=== PATIENT | male | born 1955 | race Caucasian/White ===

== ENCOUNTER 2019-07-20 09:20 | Outpatient (CLI) | payer MEDICARE, SELFPAY ==
--- NOTE | 2019-07-20 09:25 | ECG_ITS ---
Measurements Intervals [place] Rate: 98 P: 42 MO: 178 QRS: 25 QRSD: 74 T: 28 QT: 318 QTc: 407 Interpretive Statements SINUS RHYTHM LOW QRS VOLTAGE IN PRECORDIAL LEADS BASELINE ARTIFACT- I, II, AVR, V5-V6 BORDERLINE ECG Electronically Signed On 07-20-2019 10:13:21 LENS MATCHER by Moreno Salazar D.O.
[2019-07-20 10:13] LABS: Blood Urea Nitrogen 24 mg/dL (9-20); Calcium 9.8 mg/dL (8.4-10.2); Carbon Dioxide 30 mmol/L (22-30); Chloride 98 mmol/L (98-107); Estimated Glomerular Filt Rate 34; Glucose 114 mg/dL (75-110); Potassium 3.6 mmol/L (3.4-5.0); Sodium 137 mmol/L (137-145)
== END 2019-07-20 09:21 | disposition home or self-care (01) ==
PROVIDERS: Anesthesiology; PCP Internal Medicine; Visit Provider Urology
DX: Z01.818 Encounter for other preprocedural examination (principal); C61 Malignant neoplasm of prostate; I10 Essential (primary) hypertension
CPT/HCPCS: 36415; 80048; 87086; 93005

== ENCOUNTER 2019-08-02 00:37 | Day surgery (SDC) | payer MEDICARE, SELFPAY ==
[2019-07-18 15:50] VITALS: BMI 31.4
--- NOTE | 2019-08-02 09:19 | WPDHPUPDATE1 ---
History and Physical Update Update Date/Time: 08/02/19 09:19 History and Physical has been reviewed, including an updated exam of the patient. There are NO changes in the patient's condition. Risks, benefits, and alternatives have been discussed and questions answered. Patient agrees to proceed with procedure.
[2019-08-02] MEDS: LACTATED RINGERS 1,000 ML 30 ML IV CONT (09:20)
[2019-08-02 09:45] VITALS: BP 124/61; PULSE 61; RESP 18; TEMP 36.2; O2SAT 98
--- NOTE | 2019-08-02 10:39 | WPDANESEPPF ---
Anes - Initial Pre Proc Eval Procedure: Operation Date: 08/02/19 10:30 Proposed Procedures p Insertion of SpaceOAR Hydrogel System - Jose Enrique Castillo MD Date/Time: 08/02/19 10:39 Surgeon: Jose Enrique Castillo MD Pre Op Diagnosis: Prostate Cancer Patient Data Age: 64 Gender: M Height: 5 ft 6 in Weight: 84.6 kg Allergies Allergy/AdvReac Type Severity Reaction Status Date / Time No Known Allergies Allergy Verified 08/02/19 10:01 Home Medications Medication Instructions Recorded Confirmed Type lactobacillus combination no.4 3,000 mmu cells PO DAILY 07/18/19 08/02/19 History [Probiotic] lisinopril-hydrochlorothiazide 1 tablet PO DAILY 07/18/19 08/02/19 History multivitamin,ue-jxvz-ueqdtzft 1 tablet PO DAILY 07/18/19 08/02/19 History [Complete Multivitamin] pantoprazole 40 mg PO HS 07/18/19 08/02/19 History pravastatin 20 mg PO DAILY 07/18/19 08/02/19 History zolpidem 5 mg PO HS PRN 07/18/19 08/02/19 History Patient hx anesthesia problems: none Family hx anesthesia problems: none [facility] Past Medical History Medical History (Updated 08/02/19 @ 08:37 by Thee Magallon MD) GERD (gastroesophageal reflux disease) H/O prostate cancer Hyperlipidemia Hypertension Anes - Eval Final PreProcedure Day of Procedure 08/02/19 10:39 Patient weight: overweight Heart: regular rate and rhythm Lungs: clear to auscultation Airway: Mallampati scale class III Neurological: alert and oriented Last oral intake: >/= 8 hours ASA classification: III Emergent: no Anesthetic plan: proceed Anesthesia type and monitoring: general LMA and standard monitoring Informed Consent: The patient's anesthetic plan and its attendant risks and benefits were discussed with the patient/family/POA. Questions were solicited and answers provided to the satisfaction of the patient/family/POA.
[2019-08-02] MEDS: ceFAZolin 2 GM/D5W 50 ML 2 GM/50 ML BAG IVPB (11:28)
--- NOTE | 2019-08-02 11:55 | P.OP_ITS ---
Procedure Note - Detailed Date of procedure: 08/02/19 Pre-op diagnosis: Prostate Cancer Post-op diagnosis: same Procedure performed: Space OAR 58037 Ultrasound guidance 769 for to Description of procedure: Patient was taken to the operative suite and correctly identified. Once anesthesia was obtained was placed in dorsal lithotomy position prepped draped usual sterile fashion. Transrectal ultrasound probe was inserted in the rectum with clear visualization of the prostatic base and apex. At this point time the space so AR Hydrogel was prepared as described in the manufacture's instructions. Under transrectal ultrasound guidance a 15 cm 18 gauge needle was inserted transperineal through the rectal urethralis muscle and the needle tip advanced into the perirectal fat posterior to the prostate. The needle position and our bevel were confirmed in both sagittal and axial varela. 3-5 cc of sterile saline was used to hydrodissect the space between the Denonvilliers fascia and anterior rectal wall. Aspiration did not yield any b leeding. With the needle tip at the mid gland, the axial feel was viewed confirm the needle was not in the rectal wall, movement of the needle to without corresponding lumen of the rectal wall confirm perirectal placement. The assembled space 0 AR delivery system was then attached to the 18 gauge needle. Under ultrasound guidance in the sagittal plane smooth continuous injection technique was used to dispense all 10 cc of the space OAR Hydrogel into the space between the prostate and the rectum. Optimal visualization of the needle during 111 is duration was maintained at all times. Axial measurement of the space between the prostate mid gland and rectum medially post space Hydrogel injection was noted and measures approximately 1.8 cm no suspected penetration or compromise of the rectal wall occurred. Patient tolerated procedure well without any complications and was taken recovery room stable condition. Anesthesia: GLMA Surgeon: Jose Enrique Castillo MD Drains: No Packing: No Pathology: none sent Complications: No immediate complications Condition: stable Disposition: PACU
[2019-08-02 12:00] VITALS: BP 107/61; PULSE 62; RESP 11; TEMP 36.2; O2SAT 100
[2019-08-02 12:15] VITALS: BP 98/49; PULSE 62; RESP 17; O2SAT 100
[2019-08-02 12:30] VITALS: BP 97/55; PULSE 60; RESP 17; O2SAT 99
[2019-08-02 12:40] VITALS: BP 124/85; PULSE 60; RESP 16; O2SAT 95
[2019-08-02 13:10] VITALS: BP 105/83; PULSE 59; RESP 14
== END 2019-08-02 13:32 | disposition home or self-care (01) ==
PROVIDERS: PCP Internal Medicine; Visit Provider Urology
PROC: (CPT 55874; principal; 2019-08-02 10:30)
DX: C61 Malignant neoplasm of prostate (principal); I10 Essential (primary) hypertension; E78.5 Hyperlipidemia, unspecified; K21.9 Gastro-esophageal reflux disease without esophagitis
CPT/HCPCS: 55874; 36415; 80048; 87086; 93005; A9270; J0690; J2250; J2704; J3010; J7120

== ENCOUNTER 2019-08-19 09:19 | Outpatient (CLI) | payer MEDICARE, SELFPAY ==
--- NOTE | ~2019-08-19 | MR_ITS ---
EXAMINATION: MR pelvis wo/w con DATE: 08/19/2019 11:34 INDICATION: Malignant neoplasm of prostate. TECHNIQUE: Magnetic resonance imaging (MRI) of the pelvis was performed without and with 17 mL MultiH ance intravenous contrast. Sequences included axial and coronal FS FIESTA, coronal T2-weighted FS FSE , axial T2-weighted FSE, axial STIR FSE, coronal and axial LAVA, axial dual-echo T1-weighted FSPGR, a nd axial DWI. Postcontrast sequences included coronal LAVA-flex and a time course of axial LAVA. COMPARISON: None. FINDINGS: The prostate is mildly enlarged. There is prominent fat in the right inguinal canal that may be a her anuja. There is a small right-sided hydrocele. There are cysts in right epididymis measuring up to 1.8 cm. There are no pathologically enlarged lymph nodes. There is a 2.9 x 1.2 x 5.3 cm fluid collection between the rectum and prostate. IMPRESSION: 1. Mildly enlarged prostate. No evidence of metastatic disease. 2. 2.9 x 1.2 x 5.3 cm fluid collection between the rectum and prostate, which may be a chronic hemato ma from prostate biopsy. Reviewed, dictated and finalized at location [facility]. IMPRESSION: 1. Mildly enlarged prostate. No evidence of metastatic disease. 2. 2.9 x 1.2 x 5.3 cm fluid collection between the rectum and prostate, which m ay be a chronic hematoma from prostate biopsy.
[2019-08-19 10:05] LABS: Basophils Absolute Auto 0.1 K/mm3 (0.0-0.1); Basophils Percent Auto 0.6 % (0.2-1.2); Eosinophils Absolute Auto 0.1 K/mm3 (0-0.3); Hematocrit 44.1 % (42.0-52.0); Immature Granulocyte Absolute 0.07 K/mm3 (0.00-0.031); Immature Granulocyte Percent A 0.9 % (0-0.5); Lymphocytes Absolute Auto 2.16 K/mm3 (0.9-3.2); Lymphocytes Percent Auto 26.9 % (18.3-44.2); Mean Corpuscular HGB Conc 31.7 g/dl (32-36); Mean Corpuscular Hemoglobin 27.3 pg (26-34); Mean Corpuscular Volume 86.1 fl (80-100); Mean Platelet Volume 9.8 fl (7.4-10.4); Monocytes Absolute Auto 0.8 K/mm3 (0.1-0.6); Neutrophils Absolute Auto 4.9 K/mm3 (1.3-6.7); Neutrophils Percent Auto 60.6 % (45.5-73.1); Platelet Count Result 361 k/mm3 (150-375); Red Blood Count 5.12 M/mm3 (4.6-6.20); Red Cell Distribution Width 12.9 % (11.5-14.5)
[2019-08-19 10:10] LABS: Add Urine Microscopic? YES; Appearance Urine Clear (Clear); Bacteria Urine Trace /hpf; Bilirubin Urine Negative (Negative); Blood Urine 1+ (Negative); Color Urine Yellow (Yellow); Glucose Urine UA Negative (Negative); Ketones Urine Negative (Negative); Leukocyte Esterase Ur Negative LEU/UL (NEGATIVE); Mucus Urine Rare /lpf; Nitrate Urine Negative (Negative); Protein Urine Negative (Negative); RBC Urine 0-2 /hpf (0-2); Specific Grav Ur 1.021 (1.001-1.035); Squamous Epithelial Cell Urine Rare /hpf (Few); Urobilinogen Urine Negative mg/dL (<2.0); WBC Urine 0-3 /hpf (0-3)
[2019-08-19 10:11] LABS: Alanine Aminotransferase 22 U/L (4-50); Albumin Level 4.2 g/dL (3.5-5.1); Alkaline Phosphatase 73 U/L (38-126); Aspartate Amino Transferase 24 U/L (17-59); Bilirubin,Total 0.4 mg/dL (0.2-1.3); Blood Urea Nitrogen 21 mg/dL (9-20); Calcium 9.7 mg/dL (8.4-10.2); Carbon Dioxide 28 mmol/L (22-30); Chloride 101 mmol/L (98-107); Estimated Glomerular Filt Rate 55; Glucose 108 mg/dL (75-110); Potassium 4.2 mmol/L (3.4-5.0); Sodium 140 mmol/L (137-145)
[2019-08-19 10:23] LABS: Estimated Glomerular Filt Rate 55
[2019-08-19 10:41] LABS: Prostate Specific Antigen 1.6 ng/mL (< OR = 4.0)
== END 2019-08-19 09:20 | disposition home or self-care (01) ==
PROVIDERS: PCP Internal Medicine; Visit Provider Radiology Radiation Oncology
DX: C61 Malignant neoplasm of prostate (principal); N40.0 Benign prostatic hyperplasia without lower urinary tract symptoms
CPT/HCPCS: 36415; 72197; 80053; 81001; 84153; 85025; A9577

== ENCOUNTER → 2021-01-10 10:12 | Outpatient (REF) | payer MEDICARE, SELFPAY | LOC: ANHLAB 10:12 | PROVIDERS: PCP Physician Assistant Medical; Visit Provider Nurse Practitioner | DX: D49.2 Neoplasm of unspecified behavior of bone, soft tissue, and skin (principal) | CPT/HCPCS: 88305; 88342 ==

== ENCOUNTER 2023-06-18 10:12 | Outpatient (CLI) | payer MEDICARE, SELFPAY ==
--- NOTE | ~2023-06-18 | CT_ITS ---
CT Scan of the Chest without Contrast: Clinical Indication: Lung cancer screening, smoking history Technique: Contiguous sections were acquired throughout the chest without intravenous contrast. Dose reduction technique was used on this scan by utilizing automated exposure control and iterative recon struction technique. The dose-length product (DLP) was 157.48 mGy-cm. Findings: There is no evidence of any significant mediastinal, hilar or axillary lymphadenopathy. Right and lef t main pulmonary arteries are prominent, especially as compared to the main pulmonary trunk. No aorti c aneurysm. There is no evidence of pleural or pericardial effusion. 2 mm right upper lobe nodule noted. Images through the upper abdomen reveal no abnormalities. Impression: Lung RADS 2: Benign appearance. 12 month follow-up screening CT advised. Prominent right and left main pulmonary arteries. Correlate for pulmonary artery hypertension. Reviewed, dictated and finalized at [facility]. [place] [employer] Impression: Lung RADS 2: Benign appearance. 12 month follow-up screening CT advised. Prominent right and left main pulmonary arteries. Correlate for pulmonary arter y hypertension.
[2023-06-18 11:28] LABS: Basophils Percent Auto 0.3 % (0.2-1.2); Eosinophils Percent Auto 0.1 % (0-4.4); Hematocrit 38.7 % (42.0-52.0); Hemoglobin 11.5 g/dL (14.0-18.0); Immature Granulocyte Absolute 0.08 K/mm3 (0.00-0.031); Immature Granulocyte Percent A 0.9 % (0-0.5); Lymphocytes Absolute Auto 1.26 K/mm3 (0.9-3.2); Lymphocytes Percent Auto 14.2 % (18.3-44.2); Mean Corpuscular HGB Conc 29.7 g/dl (32-36); Mean Corpuscular Hemoglobin 22.9 pg (26-34); Mean Corpuscular Volume 76.9 fl (80-100); Mean Platelet Volume 9.2 fl (7.4-10.4); Monocytes Absolute Auto 0.7 K/mm3 (0.1-0.6); Monocytes Percent Auto 8.1 % (2.6-8.5); Neutrophils Absolute Auto 6.8 K/mm3 (1.3-6.7); Neutrophils Percent Auto 76.4 % (45.5-73.1); Platelet Count Result 359 k/mm3 (150-375); Red Blood Count 5.03 M/mm3 (4.6-6.20); Red Cell Distribution Width 19.3 % (11.5-14.5); White Blood Count 8.9 K/mm3 (4.5-10.0)
[2023-06-18 11:41] LABS: Alanine Aminotransferase 17 U/L (6-50); Albumin Level 4.2 g/dL (3.5-5.1); Alkaline Phosphatase 74 U/L (38-126); Anion Gap 9 mmol/L (8-16); Aspartate Amino Transferase 19 U/L (17-59); Bilirubin,Total 0.7 mg/dL (0.2-1.3); Blood Urea Nitrogen 23 mg/dL (9-20); Calcium 9.6 mg/dL (8.4-10.2); Carbon Dioxide 27 mmol/L (22-30); Chloride 101 mmol/L (98-107); Cholesterol 181 mg/dL (0-200); Estimated Glomerular Filt Rate > 60; Glucose 117 mg/dL (65-110); HDL Direct 53 mg/dL; Sodium 137 mmol/L (137-145); Triglycerides 90 mg/dL (<150)
[2023-06-18 11:52] LABS: LDL Cholesterol Direct 94 mg/dL
[2023-06-18 12:11] LABS: Thyroid Stimulating Hormone 0.581 uIU/mL (0.465-4.680)
[2023-06-18 13:30] LABS: Hypochromasia 1+ (NORMAL); Platelet Estimate Adequate (Adequate); Schistocytes None Seen (NORMAL)
== END 2023-06-18 10:13 | disposition home or self-care (01) ==
PROVIDERS: PCP Physician Assistant Medical; Visit Provider Nurse Practitioner Family
DX: E78.2 Mixed hyperlipidemia (principal); E78.5 Hyperlipidemia, unspecified; I10 Essential (primary) hypertension; K21.9 Gastro-esophageal reflux disease without esophagitis; R73.01 Impaired fasting glucose; Z12.2 Encounter for screening for malignant neoplasm of respiratory organs; Z87.891 Personal history of nicotine dependence
CPT/HCPCS: 36415; 71271; 80053; 80061; 84443; 85025